=== PATIENT | female | born 1940 | race Caucasian/White ===

== ENCOUNTER 2020-08-13 13:59 | Emergency (ER) | payer OTHER ==
[~2020-08-13] VITALS: Ht 175.3 cm; Wt 78.5 kg
[2020-08-13] MEDS ORDERED: ELIQUIS5 MG PO (14:24)
[2020-08-13] MEDS ORDERED: LASIX 40 MG TAB40 MG PO (14:24)
[2020-08-13] MEDS ORDERED: NORCO5 PO (14:25)
[2020-08-13] MEDS ORDERED: ZOCOR 20 MG TAB20 M1 PO (14:25)
[2020-08-13] MEDS ORDERED: KEFLEX500 M1 PO (15:10)
[2020-08-13 15:29] VITALS: BP 136/72
== END 2020-08-13 15:30 | disposition home or self-care (01) ==
LOC: M.ERS 13:59
DX: L03.116 Cellulitis of left lower limb (principal); I48.91 Unspecified atrial fibrillation; G62.9 Polyneuropathy, unspecified; Z96.652 Presence of left artificial knee joint; Z79.899 Other long term (current) drug therapy; Z88.5 Allergy status to narcotic agent; Z88.0 Allergy status to penicillin

== ENCOUNTER 2020-08-15 15:31 | Inpatient (IN) | payer OTHER ==
[~2020-08-15] VITALS: Ht 175.3 cm; Wt 82.6 kg
[~2020-08-15 15:31] MED LIST: ELIQUIS5 MG PO; KEFLEX500 M1 PO; LASIX 40 MG TAB40 MG PO; NORCO5 PO; ZOCOR 20 MG TAB20 M1 PO
[2020-08-15 15:40] VITALS: BP 151/65
[2020-08-15 16:10] LABS: ABSOLUTE EOSINOPHILS 0.1 thou/uL (0.0-0.7); ABSOLUTE LYMPHOCYTES 1.7 thou/uL (0.8-5.3); ABSOLUTE MONOCYTES 0.5 thou/uL (0.0-1.2); BASOPHILS 0.7 %; EOSINOPHILS 2.5 %; HEMATOCRIT 38.5 % (37.0-47.0); HEMOGLOBIN 12.9 gm/dL (12.0-15.0); LYMPHOCYTES 31.7 %; MCH 30.7 pg (26.0-34.0); MCHC 33.4 g/dL (28.0-37.0); MCV 91.9 fL (80.0-100.0); MONOCYTES 9.2 %; MPV 8.1 fl. (7.2-11.1); NUCLEATED RBCS 0 /100WBC; PLATELET COUNT* 395 thou/uL (150-400); POLYS 55.9 %; RBC 4.19 mil/uL (4.20-5.00); RDW-CV 14.2 % (10.5-14.5); WBC 5.4 thou/uL (4.0-11.0)
[2020-08-15 16:23] LABS: CREATININE 0.9 mg/dL (0.6-1.3); POTASSIUM 3.9 mmol/L (3.5-5.1)
[2020-08-15 16:34] LABS: ALBUMIN 3.5 g/dL (3.4-5.0); APTT 26.3 Seconds (25.0-31.3); TOTAL BILIRUBIN 0.5 mg/dL (<0.1-1.0); TOTAL PROTEIN 7.5 g/dL (6.4-8.2)
[2020-08-15 17:07] VITALS: BP 145/57
[2020-08-15 17:20] VITALS: BP 153/67
[2020-08-15] MEDS ORDERED: GABAPENTIN100 MG PO (18:04)
[2020-08-15] MEDS ORDERED: ROPINIROLE HCL0.5 MG PO (18:04)
[2020-08-15] MEDS ORDERED: PROPAFENONE 15150 MG PO (18:09)
[2020-08-15 20:30] VITALS: BP 107/48
[2020-08-15 22:00] LABS: URINE BILIRUBIN NEGATIVE (Negative); URINE BLOOD NEGATIVE (Negative); URINE CLARITY CLEAR; URINE COLOR YELLOW; URINE GLUCOSE-RANDOM NEGATIVE (Negative); URINE KETONES NEGATIVE (Negative); URINE LEUKOCYTES-REFLEX NEGATIVE (Negative); URINE NITRITE-REFLEX NEGATIVE (Negative); URINE PROTEIN NEGATIVE (Negative); URINE UROBILINOGEN 0.2 E.U./dl (0.2-1.0)
[2020-08-16 07:00] VITALS: BP 112/55
[2020-08-16 16:00] VITALS: BP 119/53
[2020-08-16 20:19] VITALS: BP 114/47
[2020-08-17 08:45] VITALS: BP 113/60
--- NOTE | 2020-08-17 10:42 | EKG ---
[place] [address] ELECTROCARDIOGRAM REPORT Name: BJORN ALEXANDER Room: [address] IN [facility]#: [id number] Admission: 08/15/20 Attend Phys: Efrain Contreras Discharge: Date of : 36 Date of Service: 08/15/20 1609 Report #: [id number] THIS REPORT FOR: //name// [facility] ED Test Date: 2020-08-15 Test Time: 16:09:19 Pat Name: BJORN ALEXANDER Department: Room: [facility] Gender: F [place] Former Machine Operator: : 1940 Requested By: Leonardo Sanchez Order Number: [id number] MD: Guille Madrid Measurements Intervals [place] Rate: 69 P: 52 FL: 171 QRS: -6 QRSD: 112 T: 30 QT: 386 QTc: 414 Interpretive Statements Sinus rhythm Borderline intraventricular conduction delay No previous ECG available for comparison Electronically Signed On 08-17-2020 10:42:37 CDT by Guille Madrid [email or web address] <ELECTRONICALLY SIGNED> By: Guille Madrid MD, [facility] 08/17/20 1042 1609 1609 Guille Madrid MD, [facility] /EPI
[2020-08-17 16:30] VITALS: BP 115/47
[2020-08-17 19:45] VITALS: BP 112/48
[2020-08-18 05:54] LABS: HEMATOCRIT 32.5 % (37.0-47.0); MCH 30.4 pg (26.0-34.0); MCV 92.3 fL (80.0-100.0); MPV 8.4 fl. (7.2-11.1); RBC 3.52 mil/uL (4.20-5.00); RDW-CV 14.1 % (10.5-14.5); WBC 5.1 thou/uL (4.0-11.0)
[2020-08-18 06:13] LABS: HEMOGLOBIN 10.7 gm/dL (12.0-15.0)
[2020-08-18 06:14] LABS: ALBUMIN 2.7 g/dL (3.4-5.0); CALCIUM 8.5 mg/dL (8.5-10.1); CREATININE 0.8 mg/dL (0.6-1.3); POTASSIUM 3.5 mmol/L (3.5-5.1); TOTAL BILIRUBIN 0.3 mg/dL (<0.1-1.0); TOTAL PROTEIN 5.9 g/dL (6.4-8.2)
[2020-08-18 07:38] VITALS: BP 122/57
--- NOTE | 2020-08-18 16:20 | 2DMMODE ---
[place] [address] 2 D/M-MODE ECHOCARDIOGRAM Name: BJORN ALEXANDER Genet Room: [address] IN [facility]#: [id number] Admission: 08/15/20 Attend Phys: Efrain Contreras Discharge: Date of : 36 Date of Service: 08/18/20 1620 Report #: [id number] THIS REPORT FOR: cc: Lawrence John,Lawrence Salazar,Pj Perez MD [facility] ~ APPROVED REPORT Study performed: 08/18/2020 15:08:59 EXAM: Comprehensive 2D, Doppler, and color-flow Echocardiogram Patient Location: In-Patient Room #: [facility] Status: routine BSA: 1.99 HR: 76 bpm BP: 122/57 mmHg Rhythm: NSR Other Information Study Quality: Good Indications Congestive Heart Failure 2D Dimensions IVSd: 9.66 (7-11mm) LVOT Diam: 19.95 (18-24mm) LVDd: 50.54 mm PWd: 8.61 (7-11mm) Ascending Ao: 29.24 (22-36mm) LVDs: 31.59 (25-40mm) Aortic Root: 28.34 mm Volumes Left Atrial Volume (Systole) LA ESV Index: 31.00 mL/m2 Aortic Valve AoV Peak Pedro Luis.: 1.45 m/s AO Peak Gr.: 8.46 mmHg LVOT Max P.86 mmHg AO Mean Gr.: 4.81 mmHg LVOT Mean P.55 mmHg LVOT Max V: 1.21 m/s AO V2 VTI: 31.23 cm LVOT Mean V: 0.71 m/s AMIRA (VTI): 2.59 cm2 LVOT V1 VTI: 25.90 [place] [address] 2 D/M-MODE ECHOCARDIOGRAM Name: BJORN ALEXANDER Room: [address] IN [facility]#: [id number] Admission: 08/15/20 Attend Phys: Efrain Contreras Discharge: Date of : 36 Date of Service: 08/18/20 1620 Report #: [id number] Mitral Valve E/A Ratio: 1.15 MV Decel. Time: 213.41 ms MV E Max Pedro Luis.: 0.90 m/s MV PHT: 61.89 ms MVA (PHT): 3.55 cm2 TDI E/Lateral E': 7.50 E/Medial E': 6.92 Medial E' Pedro Luis.: 0.13 m/s Lateral E' Pedro Luis.: 0.12 m/s Pulmonary Valve PV Peak Pedro Luis.: 1.05 m/s PV Peak Gr.: 4.39 mmHg Tricuspid Valve RAP Estimate: 5.00 mmHg TR Peak Gr.: 24.87 mmHg RVSP: 29.00 mmHg PA Pressure: 29.00 mmHg Left Ventricle The left ventricle is normal size. There is normal LV segmental wall motion. There is normal left ventricular wall thickness. Left ventricular systolic function is normal. LVEF is 60-65%. Transmitral Doppler flow pattern suggests impaired LV relaxation. Right Ventricle The right ventricle is normal size. The right ventricular systolic function is normal. Atria The left atrium size is normal. The right atrium size is normal. Aortic Valve The aortic valve is normal in structure. No aortic regurgitation is present. There is no aortic valvular stenosis. Mitral Valve The mitral valve is normal in structure. Mild mitral regurgitation. No evidence of mitral valve stenosis. Tricuspid Valve The tricuspid valve is normal in structure. Mild tricuspid regurgitation. [place] [address] 2 D/M-MODE ECHOCARDIOGRAM Name: BJORN ALEXADNER Room: [address]#: [id number] Admission: 08/15/20 Attend Phys: Efrain Contreras Discharge: Date of : 36 Date of Service: 08/18/20 1620 Report #: [id number] Pulmonic Valve The pulmonary valve is normal in structure. There is no pulmonic valvular regurgitation. Great Vessels The aortic root is normal in size. IVC is normal in size and collapses >50% with inspiration. Pericardium There is no pericardial effusion. <Conclusion> The left ventricle is normal size. There is normal left ventricular wall thickness. Left ventricular systolic function is normal. LVEF is 60-65%. Transmitral Doppler flow pattern suggests impaired LV relaxation. There is normal LV segmental wall motion. Mild mitral regurgitation. Mild tricuspid regurgitation. No pulmonary hypertension. IVC is normal in size and collapses >50% with inspiration. <ELECTRONICALLY SIGNED> By: Pj Boogie MD, FACC 08/18/20 162 162 19 Pj Boogie MD, FACC /INF
[2020-08-18 16:24] VITALS: BP 111/49
[2020-08-18 20:30] VITALS: BP 106/45
[2020-08-19 07:30] VITALS: BP 115/52
[2020-08-19 16:10] VITALS: BP 108/53
[2020-08-19 19:45] VITALS: BP 122/50
[2020-08-20 05:38] LABS: HEMATOCRIT 33.3 % (37.0-47.0); HEMOGLOBIN 11.2 gm/dL (12.0-15.0); MCH 30.9 pg (26.0-34.0); MCHC 33.4 g/dL (28.0-37.0); MCV 92.3 fL (80.0-100.0); MPV 8.1 fl. (7.2-11.1); RBC 3.61 mil/uL (4.20-5.00); WBC 6.5 thou/uL (4.0-11.0)
[2020-08-20 05:51] LABS: CREATININE 0.7 mg/dL (0.6-1.3); POTASSIUM 3.2 mmol/L (3.5-5.1)
[2020-08-20 08:15] VITALS: BP 105/45
[2020-08-20] MEDS ORDERED: MINOCYCLINE HC100 M2 PO (11:33)
[2020-08-20] MEDS ORDERED: ACETAMINOPHEN325 M1 PO (11:35)
[2020-08-20 13:01] VITALS: BP 105/45
[2020-08-20 14:46] VITALS: BP 105/45
[2020-08-20 18:10] VITALS: BP 105/45
== END 2020-08-20 16:20 | disposition home or self-care (01) | DRG 603 ==
LOC: M.ERS 15:31 → M.ORTHSURG 16:13 → M.TBA-ER 16:13 → M.ORTHSURG 17:47
PROVIDERS: Family Medicine; ADMIT Internal Medicine; ATTEND Internal Medicine
DX: L03.116 Cellulitis of left lower limb (principal); D68.69 Other thrombophilia; G25.81 Restless legs syndrome; I48.91 Unspecified atrial fibrillation; G62.9 Polyneuropathy, unspecified; Z96.652 Presence of left artificial knee joint; I89.0 Lymphedema, not elsewhere classified; L02.416 Cutaneous abscess of left lower limb; Z20.822 Contact with and (suspected) exposure to COVID-19; S81.812A Laceration without foreign body, left lower leg, initial encounter; X58.XXXA Exposure to other specified factors, initial encounter; Y93.89 Activity, other specified; Y92.89 Other specified places as the place of occurrence of the external cause; Y99.8 Other external cause status; Z88.6 Allergy status to analgesic agent; Z88.0 Allergy status to penicillin; Z87.81 Personal history of (healed) traumatic fracture